=== PATIENT | female | born 1970 | race African-American/Black ===

== ENCOUNTER 2025-10-16 21:57 | Emergency (ER) | payer MEDICARE, MEDICAID, SELFPAY ==
[2025-10-16 22:04] VITALS: BP 138/64; PULSE 106; RESP 26; TEMP 37.2; O2SAT 100
--- NOTE | 2025-10-16 22:36 | ED_ITS ---
HPI - Wound/Laceration General Chief Complaint: Wound/Laceration Stated Complaint: MALFUNCTIONING PEG TUBE; BLEEDING AT SITE Time Seen by Provider: 10/16/25 22:28 History of Present Illness HPI narrative: 55-year-old female with history of Marfan syndrome and right total hip and knee arthroplasty surgery 1 month ago presenting to the emergency department today from her skilled care facility for unclear reasons. Patient states she is not sure why she was sent here as she has no symptoms or complaints and wishes to go back home and rest as she was woken up by the ambulance to bring her here. residential report and nursing staff report were also unclear and giving multiple different stories or issues with concern for one of her drains initially we were told that she had a PEG tube or J-tube that was malfunctioning. Patient does not have a J tube or PEG tube and eats and tolerates oral intake without difficulty. She does seem to have 2 BRIAN drains in her right lower extremity and she states have been there from a surgery about 1 month ago at [facility] with her orthopedic surgeon Dr. Estrada and they are not bothering her and been cared for with dressing changes and set to vacuum. There does appears to be some dried blood on the gauze on the distal BRIAN drain near her knee but no active bleeding or signs of any infection. Patient denies any complaints at this time. No fever, chills, pain. Review of Systems Review of Systems: as reviewed above in HPI All systems reviewed & are unremarkable except as noted in HPI and below Exam Narrative: GENERAL: Well-appearing, no acute distress, awake alert oriented answering all my questions appropriately. Marfanoid habitus noted HEAD: normocephalic and atraumatic EYES: PERRLA ENT: Nares clear, no rhinorrhea or epistaxis. Mucous membranes moist. NECK: Supple. CHEST: clear to auscultation. Symmetric chest rise, no respiratory distress HEART: regular rate and rhythm. Warm extremities, 2+ pulses. ABDOMEN: Soft and nontender, nondistended. No rigidity or guarding. Left- sided abdominal surgical scars. EXTREMITIES: Right lower extremity with 2 BRIAN drains 1 in the proximal femur area and 1 distal femur area without any active bleeding, purulence, tenderness or signs of infection. BRIAN drains are set to suction with minimal bloody output. no purulence or active drainage. No overlying skin changes skin breakdown or signs of active cellulitis. SKIN: Warm, dry, no rash. NEURO: no focal or lateralizing deficits. Answering all my questions appropriately. Alert oriented x4. Course Vital Signs Vital signs: Vital Signs Temperature 37.2 C 10/16/25 22:04 Pulse Rate 106 H 10/16/25 22:04 Respiratory Rate 26 H 10/16/25 22:04 Blood Pressure 138/64 10/16/25 22:04 Pulse Oximetry 100 10/16/25 22:04 Oxygen Delivery Room Air 10/16/25 22:04 Temperature 37.2 C 10/16/25 22:04 Pulse Rate 97 10/17/25 00:28 Respiratory Rate 19 10/17/25 00:28 Blood Pressure 142/66 H 10/17/25 00:28 Pulse Oximetry 100 10/17/25 00:28 Oxygen Delivery Room Air 10/16/25 22:04 MDM MDM Narrative Medical decision making narrative: 55-year-old female with history of Marfan syndrome and right total hip and knee arthroplasty surgery 1 month ago presenting to the emergency department today from her skilled care facility for unclear reasons. Patient states she is not sure why she was sent here as she has no symptoms or complaints and wishes to go back home and rest as she was woken up by the ambulance to bring her here. residential report and nursing staff report were also unclear and giving multiple different stories or issues with concern for one of her drains initially we were told that she had a PEG tube or J-tube that was malfunctioning. Patient does not have a J tube or PEG tube and eats and benito ates oral intake without difficulty. She does seem to have 2 BRIAN drains in her right lower extremity and she states have been there from a surgery about 1 month ago at [facility] with her orthopedic surgeon Dr. Estrada and they are not bothering her and been cared for with dressing changes and set to vacuum. There does appears to be some dried blood on the gauze on the distal BRIAN drain near her knee but no active bleeding or signs of any infection. Patient denies any complaints at this time. No fever, chills, pain. Right lower extremity with 2 BRIAN drains 1 in the proximal femur area and 1 distal femur area without any active bleeding, purulence, tenderness or signs of infection. BRIAN drains are set to suction with minimal bloody output. no purulence or active drainage. No overlying skin changes skin breakdown or signs of active cellulitis. Patient is afebrile, no significant tachycardia and a benign physical examination that seems appropriate for postoperative period. The distal BRIAN drains seemed to not be draining fully but the bulb was not compressed and the tubing had old blood in it so it was stripped and afterwards was draining appropriately. This was likely the concerned that patient was sent for. Dressing changed and no evidence of infection or complication. Patient once again expressing desire to go back home as she has no complaints. She does have a orthopedic doctor at [place] that she can follow-up with and has no emergent concerns or any symptoms. After my exam and fixing the drain I believe she is safe for outpatient follow-up and discharge. Ambulance arranged for transfer back as patient is bedbound. Differential Diagnosis Differential Diagnosis: Postoperative status, no signs of infection or cellulitis, appropriate draining wound sites Discharge Plan Discharge Clinical Impression: BRIAN drain bleeding Patient Disposition: Home Condition: Stable Instructions: Antibiotic Form Additional Instructions: The distal BRIAN drain in the right lower extremity was not functioning as it was not properly hooked to suction and had dried blood in the tubing that was stripped and now successfully draining. Dressing change applied. No evidence of infection or complication. Follow-up with your orthopedic provider and return with any emergencies. Patient Language: Bangladeshi Time of Disposition: 23:08
--- NOTE | 2025-10-16 22:37 | PC.NURSE ---
attempted to call facility regarding pt care. nurse at facility unable to accept my call at this time
[2025-10-17 00:28] VITALS: BP 142/66; PULSE 97; RESP 19; O2SAT 100
== END 2025-10-17 00:46 | disposition home or self-care (01) ==
LOC: ANHED 23:28
PROVIDERS: Emergency Provider Student in an Organized Health Care Education/Training Program
DX: T85.838A Hemorrhage due to other internal prosthetic devices, implants and grafts, initial encounter (principal); Q87.40 Marfan syndrome, unspecified; Z96.651 Presence of right artificial knee joint; Z96.641 Presence of right artificial hip joint
CPT/HCPCS: 99282